=== PATIENT | male | born 2000 | race Caucasian/White ===

== ENCOUNTER 2019-01-28 16:21 | Observation (INO) ==
[2019-01-28 17:44] LABS: Basophils # 0.1 K/mcL (0.0-0.2); Basophils % 1.2 %; Eosinophils # 0.2 K/mcL (0.0-0.6); Eosinophils % 1.6 %; Hematocrit 46.1 % (37.5-50.1); Hemoglobin 14.9 g/dL (12.9-16.9); Immature Granulocytes % 0.4 % (0-4); Lymphocytes # 1.9 K/mcL (0.6-4.6); Lymphocytes % 17.1 %; Mean Corpuscular HGB Conc 32.3 g/dL (31.6-35.5); Mean Corpuscular Hemoglobin 28.9 pg (28.0-33.3); Mean Corpuscular Volume 89.3 fL (83.0-100.0); Mean Platelet Volume 12.3 fL (9.4-12.4); Monocytes # 0.9 K/mcL (0.0-1.3); Monocytes % 8.2 %; Platelet Count 239 K/mcL (140-400); Red Blood Count 5.16 M/mcL (4.19-5.50); Red Cell Distribution Width 13.7 % (11.5-14.5); Segmented Neutrophils % 71.5 %; White Blood Count 11.2 K/mcL (4.3-11.1)
[2019-01-28 17:56] LABS: Alanine Aminotransferase 21 Units/L (7-52); Albumin 4.7 g/dL (3.5-5.7); Albumin/Globulin Ratio 1.6 (1.1-2.2); Alkaline Phosphatase 82 Units/L (34-104); Aspartate Amino Transferase 15 Units/L (13-39); BUN/Creatinine Ratio 11 (6-26); Bilirubin,Indirect 0.4 mg/dL (0.0-1.2); Bilirubin,Total 0.4 mg/dL (0.3-1.0); Blood Urea Nitrogen 13 mg/dL (6-20); Calcium 9.9 mg/dL (8.6-10.3); Carbon Dioxide 25 mEq/L (23-29); Chloride 106 mEq/L (98-107); Glucose 140 mg/dL (70-105); Lipase 9 Units/L (11-82); Osmolality,Calculated 288 (280-300); Potassium 3.8 mEq/L (3.5-5.1); Sodium 138 mEq/L (136-145); Total Protein 7.7 g/dL (6.4-8.9); eGFR For African Americans > 60 (> 60); eGFR For Non-African Americans > 60 (> 60)
[2019-01-28] MEDS ORDERED: Ondansetron 4 MG/2 ML VIAL IVP STA (18:35)
[2019-01-28] MEDS ORDERED: *HR* HYDROmorphone (PF) 1 MG/ML SYRINGE IVP ONE (18:35)
[2019-01-28 18:45] LABS: Bilirubin,Urine Small (Negative); Blood,Urine Negative (Negative); Clarity,Urine Cloudy (Clear); Color,Urine Yellow (Yellow); Glucose,Urine (UA) Normal (Normal); Ketones,Urine Trace mg/dL (Negative); Leukocyte Esterase,Urine Trace (Negative); Nitrite,Urine Negative (Negative); PH,Urine 5.5 pH Units (5.0-8.0); Protein,Urine Trace mg/dL (Neg-Trace); Specific Gravity,Urine 1.012 (1.010-1.025); Urobilinogen,Urine Normal (Normal)
[2019-01-28] MEDS ORDERED: 0.9 % Sodium Chloride 1,000 ML IVC SCH (18:45)
[2019-01-28 18:48] LABS: Bacteria,Urine None Seen per hpf (None-Few); RBC,Urine 0-3 per hpf (0-3); Squamous Epithelial Cell,Urine Many per lpf (None-Few)
[2019-01-28] MEDS ORDERED: *HR* FentaNYL (PF) 100 MCG/2 ML VIAL ONE (19:25)
[2019-01-28] MEDS ORDERED: *HR* Midazolam HCl 2 MG/2 ML VIAL ONE (19:25)
[2019-01-28] MEDS ORDERED: *HR* Rocuronium Bromide 50 MG/5 ML VIAL ONE (19:26)
[2019-01-28] MEDS ORDERED: Lidocaine -MPF 2% 2 ML VIAL ONE (19:26)
[2019-01-28] MEDS ORDERED: Dexamethasone 4 MG/ML VIAL ONE ×2 (19:26→20:18)
[2019-01-28] MEDS ORDERED: Ondansetron 4 MG/2 ML VIAL ONE (19:26)
[2019-01-28] MEDS ORDERED: *HR* Propofol 200 MG/20 ML VIAL IVP ONE ×2 (19:26→19:59)
[2019-01-28] MEDS ORDERED: Acetaminophen IV 1,000 MG/100 ML INFUS..BTL IVPB ONE (19:31)
[2019-01-28] MEDS ORDERED: traMADol 50 MG TABLET PO ONE ×2 (19:31→20:00)
[2019-01-28] MEDS ORDERED: Pregabalin 75 MG CAPSULE PO ONE ×2 (19:31→19:45)
--- NOTE | 2019-01-28 19:31 | Urology History & Physical ---
Date of Encounter: 01/28/19 Time of Encounter: 19:29 Assessment and Plan (1) Left testicular pain Status: Acute I discussed with the patient and his significant other about the options. These included observation versus emergent scrotal exploration. We are planning on proceeding with scrotal expiration. Operative risk benefits and alternatives were discussed with the patient. Informed consent was signed. History of Present Illness Chief complaint: left testicle pain HPI: Mr. Rader is a 18 year old male with history of sudden onset left-sided testicular pain 2 hours ago. Patient states the pain is currently attending 10 mostly located in his lower abdomen on the left side. Patient did undergo a scrotal ultrasound upon arrival to the hospital which showed on my personal review inconclusive blood flow to the left testicle compared to what appears to be normal blood flow in the right testicle. Patient denies any significant medical problems. Past Med Surg Social Fam HX - Past Medical History Medical history: no medical history Psychiatric history: no psych history - Past Surgical History Surgical History: no surgical history - Social History Smoking Status: Never smoker Smokeless Tobacco Status: No Alcohol use: none Drug use: none Medications and Allergies No Known Home Drugs 01/28/19 [History] Allergy/AdvReac Type Severity Reaction Status Date / Time No Known Allergies Allergy Verified 01/28/19 16:44 Review of Systems - Constitutional no chills, no fever(s) - EENT Nose, mouth and throat: no dizziness - Cardiovascular no chest pain - Respiratory no cough Exam Initial Vital Signs Temp Pulse Resp BP Pulse Ox 97.9 F 71 18 153/87 95 01/28/19 16:42 01/28/19 16:42 01/28/19 16:42 01/28/19 16:42 01/28/19 16:42 General/Neuological: alert and oriented x 3 Eyes: normal pupils, non-icteric Neck: no lymphadenopathy noted, supple to touch ABD: soft, nontender, no masses palpated, good bowel sounds, difficult morbid obesity : The cold exam secondary morbid obesity. Right testicle normal to palpation without significant pain. Left testicle quite high riding in the left inguinal canal. Significant pain on palpation. Back: no pain on percussion bilaterally Skin: no rashes noted Musculoskeletal: normal gait, FROMx4 Urology Results - Labs 01/28/19 17:13 01/28/19 17:13 Abnormal lab results WBC 11.2 K/mcL (4.3-11.1) H 01/28/19 17:13 Glucose 140 mg/dL (70-105) H 01/28/19 17:13 9 Units/L (11-82) L 01/28/19 17:13 Cloudy (Clear) A 01/28/19 18:22 Trace mg/dL (Negative) H 01/28/19 18:22 Small (Negative) H 01/28/19 18:22 Ur Leukocyte Esterase Trace (Negative) H 01/28/19 18:22 3-5 per hpf (0-3) H 01/28/19 18:22 Ur Squamous Epith Cells Many per lpf (None-Few) H 01/28/19 18:22 Ur Culture Indicated? YES (NO) A 01/28/19 18:22 Diabetes panel 01/28/19 Range/Units 17:13 Sodium 138 (136-145) mEq/L Potassium 3.8 (3.5-5.1) mEq/L Chloride 106 (98-107) mEq/L Carbon Dioxide 25 (23-29) mEq/L BUN 13 (6-20) mg/dL Creatinine 1.18 (0.70-1.30) mg/dL Glucose 140 H (70-105) mg/dL Calcium 9.9 (8.6-10.3) mg/dL AST 15 (13-39) Units/L ALT 21 (7-52) Units/L Alkaline Phosphatase 82 (34-104) Units/L Albumin 4.7 (3.5-5.7) g/dL Calcium panel 01/28/19 Range/Units 17:13 Calcium 9.9 (8.6-10.3) mg/dL Albumin 4.7 (3.5-5.7) g/dL Pituitary panel 01/28/19 Range/Units 17:13 Sodium 138 (136-145) mEq/L Potassium 3.8 (3.5-5.1) mEq/L Chloride 106 (98-107) mEq/L Carbon Dioxide 25 (23-29) mEq/L BUN 13 (6-20) mg/dL Creatinine 1.18 (0.70-1.30) mg/dL Glucose 140 H (70-105) mg/dL Calcium 9.9 (8.6-10.3) mg/dL Adrenal panel 01/28/19 Range/Units 17:13 Sodium 138 (136-145) mEq/L Potassium 3.8 (3.5-5.1) mEq/L Chloride 106 (98-107) mEq/L Carbon Dioxide 25 (23-29) mEq/L BUN 13 (6-20) mg/dL Creatinine 1.18 (0.70-1.30) mg/dL Glucose 140 H (70-105) mg/dL Calcium 9.9 (8.6-10.3) mg/dL Total Bilirubin 0.4 (0.3-1.0) mg/dL AST 15 (13-39) Units/L ALT 21 (7-52) Units/L Alkaline Phosphatase 82 (34-104) Units/L Albumin 4.7 (3.5-5.7) g/dL All other labs normal.
--- NOTE | 2019-01-28 19:36 | Emergency Department Note ---
Disposition Clinical Impression: Left testicular pain Disposition: Admitted As Inpatient Condition: Fair Forms: ED Satisfaction Letter, Work/School Release Time of Disposition: 19:43 General Adult HPI - General Chief complaint: ED Abdominal Pain Stated complaint: ABD Pain Time Seen by Provider: 01/28/19 17:50 Source: patient Limitations: no limitations - History of Present Illness Pain Scale: 10 - Related Data Home Medications Medication Instructions Recorded Confirmed No Known Home Drugs 01/28/19 01/28/19 Allergies Allergy/AdvReac Type Severity Reaction Status Date / Time No Known Allergies Allergy Verified 01/28/19 16:44 Past Medical History - Past Medical History Medical history: Reports: no medical history Psychiatric history: Reports: no psych history - Social History Smoking Status: Never smoker Smokeless Tobacco Status: No Alcohol use: Reports: none Drug use: Reports: none Physical Exam - General Limitations: no limitations General appearance: alert, in no apparent distress Course Vital Signs Temperature 97.9 F 01/28/19 16:42 Pulse Rate 71 01/28/19 16:42 Respiratory Rate 18 01/28/19 16:42 Blood Pressure 153/87 01/28/19 16:42 O2 Sat by Pulse Oximetry 95 01/28/19 16:42 Temperature 97.9 F 01/28/19 16:42 Pulse Rate 76 01/28/19 18:53 Respiratory Rate 18 01/28/19 18:53 Blood Pressure 143/64 01/28/19 18:53 O2 Sat by Pulse Oximetry 96 01/28/19 18:53 Oxygen Delivery Oxygen Delivery Room Air Medical Decision Making - Lab Data Result diagrams: 01/28/19 17:13 01/28/19 17:13 Lab Results 01/28/19 01/28/19 01/28/19 Range/Units 17:13 17:13 18:22 WBC 11.2 H (4.3-11.1) K/mcL RBC 5.16 (4.19-5.50) M/mcL Hgb 14.9 (12.9-16.9) g/dL Hct 46.1 (37.5-50.1) % MCV 89.3 (83.0-100.0) fL MCH 28.9 (28.0-33.3) pg MCHC 32.3 (31.6-35.5) g/dL RDW 13.7 (11.5-14.5) % Plt Count 239 (140-400) K/mcL MPV 12.3 (9.4-12.4) fL Immature Gran % 0.4 (0-4) % Seg Neutrophils % 71.5 % Lymphocytes % 17.1 % Monocytes % 8.2 % Eosinophils % 1.6 % Basophils % 1.2 % Neutrophils # 8.0 (1.6-8.9) K/mcL Lymphocytes # 1.9 (0.6-4.6) K/mcL Monocytes # 0.9 (0.0-1.3) K/mcL Eosinophils # 0.2 (0.0-0.6) K/mcL Basophils # 0.1 (0.0-0.2) K/mcL Sodium 138 (136-145) mEq/L Potassium 3.8 (3.5-5.1) mEq/L Chloride 106 (98-107) mEq/L Carbon Dioxide 25 (23-29) mEq/L BUN 13 (6-20) mg/dL Creatinine 1.18 (0.70-1.30) mg/dL Est GFR ( Amer) > 60 (> 60) Est GFR (Non-Af Amer) > 60 (> 60) BUN/Creatinine Ratio 11 (6-26) Glucose 140 H (70-105) mg/dL Calculated Osmolality 288 (280-300) Calcium 9.9 (8.6-10.3) mg/dL Total Bilirubin 0.4 (0.3-1.0) mg/dL Direct Bilirubin 0.0 (0.0-0.2) mg/dL Indirect Bilirubin 0.4 (0.0-1.2) mg/dL AST 15 (13-39) Units/L ALT 21 (7-52) Units/L Alkaline Phosphatase 82 (34-104) Units/L Serum Total Protein 7.7 (6.4-8.9) g/dL Albumin 4.7 (3.5-5.7) g/dL Globulin 3.0 (2.4-3.5) g/dL Albumin/Globulin Ratio 1.6 (1.1-2.2) Lipase 9 L (11-82) Units/L Urine Color Yellow (Yellow) Urine Clarity Cloudy A (Clear) Urine pH 5.5 (5.0-8.0) pH Units Ur Specific [place] 1.012 (1.010-1.025) Urine Protein Trace (Neg-Trace) mg/dL Urine Glucose (UA) Normal (Normal) mg/dL Urine Ketones Trace H (Negative) mg/dL Urine Blood Negative (Negative) Urine Nitrite Negative (Negative) Urine Bilirubin Small H (Negative) Urine Urobilinogen Normal (Normal) mg/dL Ur Leukocyte Esterase Trace H (Negative) Urine Microscopic RBC 0-3 (0-3) per hpf Urine Microscopic WBC 3-5 H (0-3) per hpf Ur Squamous Epith Cells Many H (None-Few) per lpf Urine Bacteria None Seen (None-Few) per hpf Ur Culture Indicated? YES A (NO) Attestation Statement - Attestation Attestation: I, Karl Cameron DO, examined this patient [id number] and my medical decision-making was reviewed with Dr. Nicho Daniels, Resident Physician. I agree with the documented findings, disposition and treatment plan as described except to the extent set forth below. I personally supervised and was present for the lin/critical portions of the procedures completed by the resident documented below. Please see my progress notes for details. 18-year-old male presents emergency room with approximately 2-1/2 hours of severe left lower quadrant left testicular pain. Patient was sitting on the couch and acutely had severe pain in the left testicle and groin. Patient denies any specific trauma. He does drive a forklift for work. Denies any other medical history. He does not take any medications. He has not had any surgeries. No other complaints on arrival this time outside of the described by discomfort. On physical exam the patient does appear to be in some significant distress. Lungs are clear heart is regular abdomen is soft. Does have tenderness noted over the left lower abdomen and groin. Genitourinary examination shows a normal-appearing circumcised penis. Testicle is otherwise normal in the scrotum is normal. Left testicle is elevated and laterally turned. He has significant discomfort and pain with palpation of the testicle this time. Patient is concerning for acute testicular torsion based on the timeframe as stated in the symptoms. Immediately, the on-call urologist as well as ultrasound were contacted. IV access was obtained fluids and pain medication were started and screening labs were ordered. Patient has not had any history of sexual transmitted diseases all the symptoms came on acutely approximately 2 and half hours prior to arrival. I directly talk to Dr. Clark who immediately responded and agreed with coming into the bedside as quickly as possible. indoor plant technician is been advised as well though complete ultrasound at the bedside. Patient is otherwise stable and informed of our concern. No other acute etiology noted at this point. Disposition will most likely be admission for surgical intervention. See detailed documentation the physical exam, medical intervention, medical decision-making and disposition. The patient did wait out in the waiting room for approximately 2 hours prior to our evaluation. He was under our care for 45 minutes prior to the surgical evaluation. 1925 Patient is stable. indoor plant technician completed ultrasound scan were waiting for the official reads. The urologist is at the bedside and is evaluated the patient agrees that there is some significant concern in the evaluation is difficult to be completed secondary to body habitus as well as pain. Ultrasound is reviewed by myself as well as a urologist here in the emergency department there is some concern for appropriateness of flow. Surgical consent was signed patient will be taken the operating room and admitted under the surgical care. Patient will be monitored here until transport to the operative suite for surgic al intervention. Patient is otherwise stable and informed.
[2019-01-28] MEDS ORDERED: Bupivacaine/EPI 1:200k 0.5%PF 10 ML VIAL ONE (19:39)
--- NOTE | 2019-01-28 19:47 | Anesthesia Evaluation PreOp ---
Date of Encounter: 01/28/19 Time of Encounter: 19:45 - Past History Planned Operation: Exploration Testicles Bilateral Cardiac History: Denies any Significant Hx Pulmonary History: Denies Any Significant HX COMMUNICATIONS CLERK History: Denies Any Significant HX Other Medical History: Other (Obese) Anesthesia History: No Prior Anesthetic Complications Alcohol Use: none Drug use: none Medications and Allergies No Known Home Drugs 01/28/19 [History] Allergy/AdvReac Type Severity Reaction Status Date / Time No Known Allergies Allergy Verified 01/28/19 16:44 - Meds/Allergy Pre-op Review Medications Reviewed: Yes Allergies Reviewed: Yes Beta Blockers on Current Med List: No Anesthesia Results - Labs 01/28/19 17:13 01/28/19 17:13 Anesthesia Exam O2 Sat Height 1.85 m Weight 148.325 kg O2 Sat by Pulse Oximetry 96 O2 Sat by Pulse Oximetry 95 Vital Signs Temp Pulse Resp BP Pulse Ox 97.9 F 71 18 153/87 95 01/28/19 16:42 01/28/19 16:42 01/28/19 16:42 01/28/19 16:42 01/28/19 16:42 Height: 6'1 Weight: 327 lbs NPO (# of Hours): MN Pain Scale: 0 - HEENT Pupil (Motor): Pupils equal, EOMI Mallampati: II Teeth: Normal Oral Opening: Greater than 3 - COMMUNICATIONS CLERK LOC: Oriented COMMUNICATIONS CLERK Motor: Normal RUE, Normal LUE, Normal RLE, Normal LLE, Normal Face COMMUNICATIONS CLERK Sensory: Normal: RUE, LUE, RLE, LLE, Face - Cardiac Rhythm: Regular Murmur: None JVD: No Carotid Bruit: No - Pulmonary Breath Sounds: bilateral Clear Respiratory Effort: Symmetrical Anesthesia Assess/Plan ASA Score: 2 Level of consciousness: Cooperative, Oriented Anesthetic Plan: General Autologous Blood: No Monitoring Plan: Standard Monitors Recovery Plan: PACU (Discussed GA, agrees to proceed)
[2019-01-28] MEDS ORDERED: Pregabalin 75 MG CAPSULE ONE (19:50)
[2019-01-28] MEDS ORDERED: Acetaminophen IV 1,000 MG/100 ML INFUS..BTL ONE (19:51)
[2019-01-28] MEDS ORDERED: traMADol 50 MG TABLET ONE (19:51)
[2019-01-28] MEDS ORDERED: Famotidine 20 MG/2 ML VIAL ONE (19:51)
[2019-01-28] MEDS ORDERED: *HR* Succinylcholine 200 MG/10 ML VIAL IVP ONE (19:56)
[2019-01-28 20:19] LABS: INR 1.1; Prothrombin Time 12.3 Seconds (9.4-12.1)
[2019-01-28] MEDS ORDERED: Ketorolac 30 MG/ML VIAL ONE (20:24)
--- NOTE | 2019-01-28 20:58 | Operative Note ---
Date of procedure: 01/28/19 Pre-op diagnosis: left testicle pain Post-op diagnosis: same Procedure: Bilateral orchiopexy Anesthesia: LOLIS Surgeon: Octavio Clark Was there an urology physician assistant present: No Estimated blood loss (cc): 5 Specimen: none Condition: stable Disposition: PACU Procedure in Detail: Patient was prepped and draped in normal sterile fashion. Upon draped in the patient the patient's testicle returned to his scrotum. Timeout procedure performed. I then made a left incision on the hemiscrotum after instilled half percent Marcaine with epinephrine. I then deliver the testicle into the field. Testicle was soft and some changes consistent with recent ischemia were noted. Testicle was already untwisted. I then proceeded to perform a 3 point orchidopexy using 4-0 Prolene. Testicle was then returned to the scrotum and dartos tissue was closed using running 3-0 Vicryl. I then repeated this on the patient's right side performing the same orchiopexy. Dartos tissue was then closed. Skin incisions were closed using 4-0 Monocryl and Dermabond was placed over top. Patient taken to PACU in stable condition.
--- NOTE | 2019-01-28 21:31 | Anesthesia Evaluation Post Op ---
Date of Encounter: 01/28/19 Time of Encounter: 21:35 - Vital Signs Vital Signs: Vital Signs/O2 Sat/Glucose, Most Current Temp Pulse Resp BP Pulse Ox 01/28/19 21:20 76 18 111/51 96 01/28/19 21:10 98.1 F 80 20 107/57 99 01/28/19 18:53 76 18 143/64 96 - Lungs Lungs: Clear Ascult./Percussion - Airway Airway: Non-obstructed - Cardiovascular Regular Rate - Mental Status Mental Status: Alert & Oriented, Answers Appropriately - Pain Pain Scale: 0 - Nausea Vomiting Nausea Vomiting: Not Present - Hydration Hydration: Ice chips - Discharge PostOp Status: Transfer Patient to floor
[2019-01-28] MEDS ORDERED: *HR* Promethazine 25 MG/ML VIAL IVP PRN (21:55)
[2019-01-28] MEDS ORDERED: Naloxone 0.4 MG/ML INJ IVP PRN (21:55)
[2019-01-28] MEDS: *HR* HYDROcodone/Acet 5/325 mg TABLET PO PRN (23:11)
[2019-01-29 08:01] VITALS: BP 110/66
--- NOTE | 2019-01-29 09:04 | Discharge Summary ---
Orders not resulted at time of discharge: Pending orders 01/28/19 18:22 Culture,Urine [RM] Stat Date of Encounter: 01/29/19 Time of Encounter: 09:04 - Discharge Diagnosis (1) Left testicular pain Priority: Primary Status: Acute - Hospital Course Hospital course: Mr. Rader is a 18 year old male who arrived to the emergency department yesterday with severe left-sided testicular pain. Ultrasound was indeterminate. She was then taken to the operating room for scrotal expiration. Left testicle had detorsed. Bilateral orchiopexy was performed. Patient did well overnight. Minimal pain. Tolerating diet. - Time Spent with Patient Total time spent providing and/or coordinating discharge services: Procedures and tests throughout hospitalization: Bilateral orchiopexy on 01/28/2019 Labs on day of discharge: Labs from last 24 hours 01/28/19 01/28/19 01/28/19 19:22 18:22 17:13 WBC RBC Hgb Hct MCV MCH MCHC RDW Plt Count MPV Immature Gran % Seg Neutrophils % Lymphocytes % Monocytes % Eosinophils % Basophils % Neutrophils # Lymphocytes # Monocytes # Eosinophils # Basophils # PT 12.3 H INR 1.1 APTT 30.0 Sodium 138 Potassium 3.8 Chloride 106 Carbon Dioxide 25 BUN 13 Creatinine 1.18 Est GFR ( Amer) > 60 Est GFR (Non-Af Amer) > 60 BUN/Creatinine Ratio 11 Glucose 140 H Calculated Osmolality 288 Calcium 9.9 Total Bilirubin 0.4 Direct Bilirubin 0.0 Indirect Bilirubin 0.4 AST 15 ALT 21 Alkaline Phosphatase 82 Serum Total Protein 7.7 Albumin 4.7 Globulin 3.0 Albumin/Globulin Ratio 1.6 Lipase 9 L Urine Color Yellow Urine Clarity Cloudy A Urine pH 5.5 Ur Specific [place] 1.012 Urine Protein Trace Urine Glucose (UA) Normal Urine Ketones Trace H Urine Blood Negative Urine Nitrite Negative Urine Bilirubin Small H Urine Urobilinogen Normal Ur Leukocyte Esterase Trace H Urine Microscopic RBC 0-3 Urine Microscopic WBC 3-5 H Ur Squamous Epith Cells Many H Urine Bacteria None Seen Ur Culture Indicated? YES A 01/28/19 17:13 WBC 11.2 H RBC 5.16 Hgb 14.9 Hct 46.1 MCV 89.3 MCH 28.9 MCHC 32.3 RDW 13.7 Plt Count 239 MPV 12.3 Immature Gran % 0.4 Seg Neutrophils % 71.5 Lymphocytes % 17.1 Monocytes % 8.2 Eosinophils % 1.6 Basophils % 1.2 Neutrophils # 8.0 Lymphocytes # 1.9 Monocytes # 0.9 Eosinophils # 0.2 Basophils # 0.1 PT INR APTT Sodium Potassium Chloride Carbon Dioxide BUN Creatinine Est GFR ( Amer) Est GFR (Non-Af Amer) BUN/Creatinine Ratio Glucose Calculated Osmolality Calcium Total Bilirubin Direct Bilirubin Indirect Bilirubin AST ALT Alkaline Phosphatase Serum Total Protein Albumin Globulin Albumin/Globulin Ratio Lipase Urine Color Urine Clarity Urine pH Ur Specific [place] Urine Protein Urine Glucose (UA) Urine Ketones Urine Blood Urine Nitrite Urine Bilirubin Urine Urobilinogen Ur Leukocyte Esterase Urine Microscopic RBC Urine Microscopic WBC Ur Squamous Epith Cells Urine Bacteria Ur Culture Indicated? Preliminary micro results at discharge 01/28/19 18:22 Urine Culture - Preliminary Urine,Clean Catch Culture is incubating. - Impressions ITS Impressions Scrotum Ultrasound 01/28/19 18:33 IMPRESSION: Tiny left intratesticular cyst and right epididymal cyst versus spermatocele. There is a trace simple appearing left hydrocele. Otherwise unremarkable ultrasound with normal Doppler flow. D/ / Mirna Francis MD / Mirna Francis MD Interpreting Provider: Mirna Francis MD - Discharge Medications Prescriptions: New HYDROcodone/Acet 5/325 mg [[place] 5-325 mg] 2 tab PO Q6HR PRN 5 Days #8 tablet PRN Reason: Pain Home Medications: HYDROcodone/Acet 5/325 mg [[place] 5-325 mg] 2 tab PO Q6HR PRN 5 Days #8 tablet 01/29/19 [Rx] Allergies/Adverse Reactions: Allergy/AdvReac Type Severity Reaction Status Date / Time No Known Allergies Allergy Verified 01/28/19 16:44 Date of admission: 01/28/19 21:07 Primary care physician: PCP NONE Discharging clinician: Octavio Clark Anticipated date of discharge: 01/29/19 Exam Initial Vital Signs Temp Pulse Resp BP Pulse Ox 97.9 F 71 18 153/87 95 01/28/19 16:42 01/28/19 16:42 01/28/19 16:42 01/28/19 16:42 01/28/19 16:42 - General physical appearance Present: well developed, well nourished - Neck Present: no masses - Respiratory Present: normal respiratory effort - Cardiovascular Cardiovascular exam IM: RRR - Abdomen Abdomen: Present: soft - Genitourinary other (Incisions healing well) - Patient Status Disposition: Home, Self-Care Condition: Good Overall status at discharge: patient is progressing back to baseline - Discharge Instructions Follow Up With: NONE,PCP [Primary Care Provider] - Octavio Clark MD [Partnered Physician] - (3-4 weeks ) Additional Instructions: Okay for patient to shower tonight. No tub baths or pools for 2 weeks. Okay for patient to return to work next week. - Diet and Activity Activity: increase activity as tolerated Diet: advance to your usual diet
[2019-01-29] MEDS: *HR* HYDROcodone/Acet 5/325 mg TABLET PO PRN (09:14)
--- NOTE | 2019-01-29 16:32 | Emergency Department Note ---
Disposition Clinical Impression: Left testicular pain, Left flank pain Disposition: Admitted As Inpatient Condition: Good Time of Disposition: 16:43 Male Urogenital HPI - General Chief complaint: ED Abdominal Pain Stated complaint: ABD Pain Time Seen by Provider: 01/28/19 17:50 Source: patient Mode of arrival: ambulatory Limitations: no limitations Nursing Notes Reviewed: Yes Vital Signs Reviewed: Yes - History of Present Illness HPI Narrative: Patient is a 18 year old male presenting to the ED with a 2 hours history of LEFT flank pain radiating into his LEFT groin and testicle. Patient states that the pain is 10/10 and worsened with movement, there are no relieving factors. Patient states that approximately 2 hours ago he was laying in bed when the pain began suddenly. The patient states that the pain has worsened over time. Pt Subjective Complaint: testicle pain, other (LEFT flank/groin pain) Onset (ago): hour(s) Duration: gradually worsening Location: left testicle, left flank Radiation: left testicle, left inguinal region Severity: severe Severity scale (1-10): 10 Improves with: none Worsens with: palpation, movement Reports: denies other symptoms - Related Data Previous Rx's Medication Instructions Recorded HYDROcodone/Acet 5/325 mg [[place] 2 tab PO Q6HR PRN 5 Days #8 tablet 01/29/19 5-325 mg] Allergies Allergy/AdvReac Type Severity Reaction Status Date / Time No Known Allergies Allergy Verified 01/28/19 16:44 Review of Systems: *See History of Present Illness for more detail Constitutional: Denies: fever, chills Cardiovascular: Denies: chest pain Respiratory: Denies: dyspnea Gastrointestinal: Denies: abdominal pain, nausea, vomiting, hematemesis, melena, hematochezia Genitourinary: Patient admits to severe left-sided flank pain radiating into his left inguinal region and the left testicle. Denies: hematuria Musculoskeletal: Denies: back pain, neck pain Neurological: Denies: headache, weakness, lightheadedness/dizziness, numbness, paresthesias, difficulty with ambulation. Endocrine: Denies: fatigue All systems ED: reviewed and negative except as stated. Review of Systems: As Per HPI Past Medical History - Past Medical History Attestation: Yes The following information was validated with the patient. Source: patient Medical history: Reports: no medical history Surgical history: Reports: no surgical history Psychiatric history: Reports: no psych history - Social History Smoking Status: Never smoker Smokeless Tobacco Status: No Alcohol use: Reports: none Drug use: Reports: none Physical Exam Constitutional: The patient appears to be in acute distress due to pain. He has otherwise [id number], engaged to conversation, speech is fluid, answers questions appropriately Neuro: GCS 15, no overt focal neurological deficits Head: Atraumatic, normocephalic *Chest: Symmetric chest wall rise *Heart: Cardiac rhythm and rate are regular with S1 and S2 , no S3 or S4 appreciated, no murmurs, gallops, rubs, or clicks. *Lungs: Lungs are clear to auscultation bilaterally, without accessory muscle use or prolonged expiratory phase. No wheezes, rhonchi or stridor appreciated. Abdomen: Abdomen is obese, soft to palpation, normal bowel sounds. No abdominal bruit auscultated. Non-distended, non-rigid, no organomegaly, no ascites appreciated. No pulsatile mass, no tenderness or guarding to palpation in all four quadrants, no rebound Genitourinary: Upon testicular exam the patient's left testicle appears to be receded with an abnormal horizontal lie, it is exquisitely tender to palpation, is unable to be detorsed in the emergency department. There is no swelling or erythema overlying scrotum, Extremities: Normal capillary refill. Pulses/motor intact in all 4 extremities. Psychiatric exam: Patient is extremely anxious due to pain Integumentary: warm, dry, intact, normal color. No rash, cyanosis, diaphoresis, erythema, or pallor - General Limitations: no limitations General appearance: alert, in no apparent distress Course Course Narrative: Concern for testicular torsion, we will obtain emergent scrotal Doppler ultras ound and contact Urology for likely emergency surgical detorsion. We will give Dilaudid and Zofran at this time for management of patient's symptoms. Basic laboratories, urinalysis, coags in preparation for surgical management Vital Signs Temperature 97.9 F 01/28/19 16:42 Pulse Rate 71 01/28/19 16:42 Respiratory Rate 18 01/28/19 16:42 Blood Pressure 153/87 01/28/19 16:42 O2 Sat by Pulse Oximetry 95 01/28/19 16:42 Temperature 97.9 F 01/29/19 08:00 Pulse Rate 70 01/29/19 08:00 Respiratory Rate 16 01/29/19 08:00 Blood Pressure 110/66 01/29/19 08:00 O2 Sat by Pulse Oximetry 100 01/29/19 08:00 Oxygen Delivery Oxygen Delivery Room Air Urogenital-Male - MDM Narrative Medical decision making narrative: Laboratories are unremarkable for acute pathology. Doppler shows inconclusive results for testicular torsion. Urology consult and will be assuming care of patient. Patient taken for emergency detorsion. Patient is hemodynamically stable at time of transfer of care. - Lab Data Lab results reviewed: Yes I reviewed the patient's lab results. Result diagrams: 01/28/19 17:13 01/28/19 17:13 Lab Results 01/28/19 01/28/19 01/28/19 Range/Units 17:13 17:13 18:22 WBC 11.2 H (4.3-11.1) K/mcL RBC 5.16 (4.19-5.50) M/mcL Hgb 14.9 (12.9-16.9) g/dL Hct 46.1 (37.5-50.1) % MCV 89.3 (83.0-100.0) fL MCH 28.9 (28.0-33.3) pg MCHC 32.3 (31.6-35.5) g/dL RDW 13.7 (11.5-14.5) % Plt Count 239 (140-400) K/mcL MPV 12.3 (9.4-12.4) fL Immature Gran % 0.4 (0-4) % Seg Neutrophils % 71.5 % Lymphocytes % 17.1 % Monocytes % 8.2 % Eosinophils % 1.6 % Basophils % 1.2 % Neutrophils # 8.0 (1.6-8.9) K/mcL Lymphocytes # 1.9 (0.6-4.6) K/mcL Monocytes # 0.9 (0.0-1.3) K/mcL Eosinophils # 0.2 (0.0-0.6) K/mcL Basophils # 0.1 (0.0-0.2) K/mcL PT (9.4-12.1) Seconds INR APTT (26.0-36.0) Seconds Sodium 138 (136-145) mEq/L Potassium 3.8 (3.5-5.1) mEq/L Chloride 106 (98-107) mEq/L Carbon Dioxide 25 (23-29) mEq/L BUN 13 (6-20) mg/dL Creatinine 1.18 (0.70-1.30) mg/dL Est GFR ( Amer) > 60 (> 60) Est GFR (Non-Af Amer) > 60 (> 60) BUN/Creatinine Ratio 11 (6-26) Glucose 140 H (70-105) mg/dL Calculated Osmolality 288 (280-300) Calcium 9.9 (8.6-10.3) mg/dL Total Bilirubin 0.4 (0.3-1.0) mg/dL Direct Bilirubin 0.0 (0.0-0.2) mg/dL Indirect Bilirubin 0.4 (0.0-1.2) mg/dL AST 15 (13-39) Units/L ALT 21 (7-52) Units/L Alkaline Phosphatase 82 (34-104) Units/L Serum Total Protein 7.7 (6.4-8.9) g/dL Albumin 4.7 (3.5-5.7) g/dL Globulin 3.0 (2.4-3.5) g/dL Albumin/Globulin Ratio 1.6 (1.1-2.2) Lipase 9 L (11-82) Units/L Urine Color Yellow (Yellow) Urine Clarity Cloudy A (Clear) Urine pH 5.5 (5.0-8.0) pH Units Ur Specific [place] 1.012 (1.010-1.025) Urine Protein Trace (Neg-Trace) mg/dL Urine Glucose (UA) Normal (Normal) mg/dL Urine Ketones Trace H (Negative) mg/dL Urine Blood Negative (Negative) Urine Nitrite Negative (Negative) Urine Bilirubin Small H (Negative) Urine Urobilinogen Normal (Normal) mg/dL Ur Leukocyte Esterase Trace H (Negative) Urine Microscopic RBC 0-3 (0-3) per hpf Urine Microscopic WBC 3-5 H (0-3) per hpf Ur Squamous Epith Cells Many H (None-Few) per lpf Urine Bacteria None Seen (None-Few) per hpf Ur Culture Indicated? YES A (NO) 01/28/19 Range/Units 19:22 WBC (4.3-11.1) K/mcL RBC (4.19-5.50) M/mcL Hgb (12.9-16.9) g/dL Hct (37.5-50.1) % MCV (83.0-100.0) fL MCH (28.0-33.3) pg MCHC (31.6-35.5) g/dL RDW (11.5-14.5) % Plt Count (140-400) K/mcL MPV (9.4-12.4) fL Immature Gran % (0-4) % Seg Neutrophils % % Lymphocytes % % Monocytes % % Eosinophils % % Basophils % % Neutrophils # (1.6-8.9) K/mcL Lymphocytes # (0.6-4.6) K/mcL Monocytes # (0.0-1.3) K/mcL Eosinophils # (0.0-0.6) K/mcL Basophils # (0.0-0.2) K/mcL PT 12.3 H (9.4-12.1) Seconds INR 1.1 APTT 30.0 (26.0-36.0) Seconds Sodium (136-145) mEq/L Potassium (3.5-5.1) mEq/L Chloride (98-107) mEq/L Carbon Dioxide (23-29) mEq/L BUN (6-20) mg/dL Creatinine (0.70-1.30) mg/dL Est GFR ( Amer) (> 60) Est GFR (Non-Af Amer) (> 60) BUN/Creatinine Ratio (6-26) Glucose (70-105) mg/dL Calculated Osmolality (280-300) Calcium (8.6-10.3) mg/dL Total Bilirubin (0.3-1.0) mg/dL Direct Bilirubin (0.0-0.2) mg/dL Indirect Bilirubin (0.0-1.2) mg/dL AST (13-39) Units/L ALT (7-52) Units/L Alkaline Phosphatase (34-104) Units/L Serum Total Protein (6.4-8.9) g/dL Albumin (3.5-5.7) g/dL Globulin (2.4-3.5) g/dL Albumin/Globulin Ratio (1.1-2.2) Lipase (11-82) Units/L Urine Color (Yellow) Urine Clarity (Clear) Urine pH (5.0-8.0) pH Units Ur Specific [place] (1.010-1.025) Urine Protein (Neg-Trace) mg/dL Urine Glucose (UA) (Normal) mg/dL Urine Ketones (Negative) mg/dL Urine Blood (Negative) Urine Nitrite (Negative) Urine Bilirubin (Negative) Urine Urobilinogen (Normal) mg/dL Ur Leukocyte Esterase (Negative) Urine Microscopic RBC (0-3) per hpf Urine Microscopic WBC (0-3) per hpf Ur Squamous Epith Cells (None-Few) per lpf Urine Bacteria (None-Few) per hpf Ur Culture Indicated? (NO) - Radiology Data Radiology results reviewed: Yes I reviewed the patient's radiology results. Scrotum Ultrasound 01/28/19 18:33 IMPRESSION: Tiny left intratesticular cyst and right epididymal cyst versus spermatocele. There is a trace simple appearing left hydrocele. Otherwise unremarkable ultrasound with normal Doppler flow. D/ / Mirna Francis MD / Mirna Francis MD Interpreting Provider: Mirna Francis MD
== END 2019-01-29 11:17 | disposition home or self-care (01) ==
LOC: EMEROOARM 16:21 → 3ANU 16:21
PROVIDERS: ADMIT Urology; ATTEND Urology